=== PATIENT | female | born 1960 | race Caucasian/White ===

== ENCOUNTER → 2016-10-05 | Outpatient (CLI) | payer BC ==
--- NOTE | 2016-10-05 12:14 | RADIOLOGY REPORT (SQ) ---
EXAM DESCRIPTION: MRI LT UPPER JOINT WITHOUT COMPLETED DATE/TIME: 10/05/2016 10:34 am REASON FOR STUDY: ADHESIVE CAPSULITIS OF L SHOULDER (M75.02), LT SHOULDER PAIN (M25.512) M75.02 ADH ESIVE CAPSULITIS OF LEFT SHOULDER COMPARISON: None. TECHNIQUE: Left shoulder images acquired and stored on PACS. Multiplanar imaging to include fat sens itive sequences such as T1, water sensitive sequences such as FST2/STIR, cartilage sensitive sequence s such as FSPD/gradient-echo sequences. LIMITATIONS: None. FINDINGS: BONE MARROW AND CORTEX: No worrisome bone lesions or marrow replacement. No occult fractur es. JOINT OR BURSAL EFFUSION: No significant joint effusion. Trace subacromial bursa fluid. GLENO-HUMERAL ARTICULATION: Normal articulation. No subluxation. No cystic change. No osteophytes or cartilage loss. ACROMION AND AC JOINT: Minimal degenerative overgrowth. Type 2 acromion with minimal spurring and very slight down slope. Subacromial space relatively preserved, however. ROTATOR CUFF AND INTERVAL: Focal tear in the footprint of the cuff, anterior supraspinatus fibers. W hile this may be focally high-grade, no full-thickness breech identified. Cuff signal and thickness otherwise generally intact. No cuff muscle atrophy. Mild scar in the rotator interval may reflect adhesive capsulitis. LABRUM AND BICEPS LABRAL COMPLEX: No suggestion of overt slap tear or biceps pathology. REMAINDER OF LABRUM AND IGHL : Generally intact. PERIARTICULAR AND ADJACENT SOFT TISSUES: No masses or abnormal nodes. OTHER: No other significant finding. IMPRESSION: 1. Very focal tear along anterior supraspinatus insertion without full-thickness breech demonstrated. 2. Probable adhesive capsulitis. TECHNICAL DOCUMENTATION: JOB ID: [id number] [employer]- All Rights Reserved
== END ==
LOC: RAD 08:48
PROVIDERS: ATTEND Orthopaedic Surgery Sports Medicine
DX: M75.02 Adhesive capsulitis of left shoulder (principal); M25.512 Pain in left shoulder